=== PATIENT | male | born 1990 | race Caucasian/White ===

== ENCOUNTER → 2021-05-09 | Outpatient (CLI) | payer BC ==
[~2021-05-09] VITALS: Ht 177.8 cm; Wt 78.5 kg
== END ==
LOC: OPSV 10:59
DX: K50.90 Crohn's disease, unspecified, without complications (principal)
CPT/HCPCS: 96365; J3380; J7050

== ENCOUNTER → 2021-05-27 | Outpatient (CLI) | payer OTHER ==
[~2021-05-27] VITALS: Ht 177.8 cm; Wt 78.5 kg
== END ==
LOC: OPSV 10:00
DX: Z53.9 Procedure and treatment not carried out, unspecified reason (principal)
CPT/HCPCS: 96365; J3380; J7050

== ENCOUNTER → 2021-06-24 | Outpatient (CLI) | payer OTHER | LOC: OPSV 10:00 | DX: K50.90 Crohn's disease, unspecified, without complications (principal) | CPT/HCPCS: 96365; J3380; J7050 ==

== ENCOUNTER → 2021-08-19 | Outpatient (CLI) | payer OTHER ==
[~2021-08-19] VITALS: Ht 177.8 cm; Wt 78.5 kg
== END ==
LOC: OPSV 12:46
DX: Z53.9 Procedure and treatment not carried out, unspecified reason (principal)
CPT/HCPCS: 96365; J3380; J7050

== ENCOUNTER → 2021-10-14 | Outpatient (CLI) | payer OTHER ==
[~2021-10-14] VITALS: Ht 177.8 cm; Wt 78.5 kg
== END ==
LOC: OPSV 10:00
DX: Z53.9 Procedure and treatment not carried out, unspecified reason (principal)
CPT/HCPCS: 96365; J3380; J7050

== ENCOUNTER → 2021-12-16 | Outpatient (CLI) | payer OTHER ==
[~2021-12-16] VITALS: Ht 177.8 cm; Wt 78.5 kg
== END ==
LOC: OPSV 10:00
DX: K50.90 Crohn's disease, unspecified, without complications (principal)
CPT/HCPCS: 96365; J3380; J7050

== ENCOUNTER → 2022-02-16 | Outpatient (CLI) | payer OTHER ==
[~2022-02-16] VITALS: Ht 177.8 cm; Wt 78.5 kg
== END ==
LOC: OPSV 11:00
DX: K50.90 Crohn's disease, unspecified, without complications (principal)
CPT/HCPCS: 96365; J3380; J7050